=== PATIENT | female | born 1980 | race Caucasian/White ===

== ENCOUNTER → 2016-10-05 | Outpatient (CLI) | payer BC, OTHER ==
[~2016-10-05] MED LIST: CELEXA PO; HYDROCHLOROTH12.5 M1 PO; LEVOTHYROXINE75 MCG PO; PHENTERMINE H37.5 M1 PO; VITAMIN D350000 UNIT PO; ZESTRIL10 M2 PO
--- NOTE | ~2016-10-05 | EKG ---
PATIENT: LYNNE DAILEY UNIT #: [id number] Ventricular Rate: 63 BPM Atrial Rate: 63 BPM P-R Interval: 140 ms QRS Duration: 84 ms Q-T Interval: 396 ms QTC Calculation(Bezet): 405 ms P Powell: 4 degrees Calculated R Powell: -11 degrees Calculated T Powell: 0 degrees Diagnosis Line: Normal sinus rhythm Diagnosis Line: Minimal voltage criteria for LVH, may be normal Diagnosis Line: variant Diagnosis Line: Poor R wave progression questionable lead position Diagnosis Line: or body habitus Diagnosis Line: Borderline ECG Diagnosis Line: No previous ECGs available Diagnosis Line: Confirmed by NAVARRO YEUNG MD ([id number]) on Diagnosis Line: 10/06/2016 6:44:15 AM INTERPRETING MD: SAMEERA
--- NOTE | ~2016-10-05 | CR97 ---
[facility] A Service of [facility] & [facility] RADIOLOGY TEXT RESULTS PATIENT: LYNNE DAILEY LOCATION: [facility] : 84 UNIT #: [id number] AGE: [address]: Ernesto Pinzon SEX: F ORDER DR: [id number] [facility] [address] [facility]. [place], [place] [address] [id number] O MR#: [id number] Acc #: [id number] NAME: LYNNE DAILEY : 1980 SEX: F STUDY DATE/TIME: 10/05/2016 9:14 UNIT: [facility] ROOM: STUDY DESCRIPTION: CR Esophagram Attending Physician: Ernesto Pinzon M.D. Referring Physician: Ernesto Pinzon M.D. Ordering Physician: Ernesto Pinzon M.D. Primary Care Physician: Anh Harvey A.P.R.N. MEDICAL IMAGING REPORT This report is preliminary unless electronic signature is present EXAM Barium esophagram. INDICATION Preop for Lap-Band surgery. Morbid obesity. TECHNIQUE The fluoro time was 0.4 minutes. 9 images were taken. FINDINGS There are multiple tertiary contractions. No evidence for a hiatal hernia. Calcified hilar lymph nodes are noted. IMPRESSION Multiple tertiary contractions, otherwise unremarkable. Dictated by... Marcos Philippe M.D. THIS IS AN ELECTRONICALLY VERIFIED REPORT Marcos Philippe M.D. at 10/05/2016 4:42 PM REYES/gabino TD: 10/05/2016 10:42 JOB #: [id number] MEDICAL IMAGING REPORT Page 1 of 1 COPY
--- NOTE | ~2016-10-05 | CR63 ---
[facility] A Service of [facility] & [facility] RADIOLOGY TEXT RESULTS PATIENT: LYNNE DAILEY LOCATION: [facility] : 84 UNIT #: [id number] AGE: [address]: Ernesto Pinzon SEX: F ORDER DR: [id number] [facility] [address] [place], [place] [address] [id number] O MR#: [id number] Acc #: [id number] NAME: LYNNE DAILEY : 1980 SEX: F STUDY DATE/TIME: 10/05/2016 7:57 UNIT: [facility] ROOM: STUDY DESCRIPTION: CR Chest 2 View Attending Physician: Ernesto Pinzon M.D. Referring Physician: Ernesto Pinzon M.D. Ordering Physician: Ernesto Pinzon M.D. Primary Care Physician: Anh Harvey A.P.R.N. MEDICAL IMAGING REPORT This report is preliminary unless electronic signature is present EXAM Chest 2 views dated 10/05/2016 COMPARISON Chest views dated 08/26/2015. HISTORY Possible paraesophageal hernia repair. Preop evaluation. FINDINGS 2 views of the chest were obtained. Stable calcifications are noted in bilateral matty suggestive of calcified lymph nodes. No acute cardiopulmonary disease. Dictated by... Johnny Masters M.D. THIS IS AN ELECTRONICALLY VERIFIED REPORT Johnny Masters M.D. at 10/05/2016 5:18 PM CPR/aa TD: 10/05/2016 09:21 JOB #: [id number] MEDICAL IMAGING REPORT Page 1 of 1 COPY
[2016-10-05 09:59] LABS: HEMATOCRIT 40.8 % (35.0-45.0); HEMOGLOBIN 13.3 gm/dL (12.0-16.0); MEAN CELL VOLUME 81.6 FL (83-96); MEAN CORPUSCULAR HEMOGLOBIN 26.7 PG (28-34); MEAN CORPUSCULAR HGB CONC 32.7 g/dL (30-36); MEAN PLATELET VOLUME 9.4 FL (6.5-11.5); RED CELL DISTRIBUTION WIDTH 14.4 % (11.0-15.5); WHITE BLOOD COUNT 7.3 X10e3 (4.0-10.5)
[2016-10-05 10:49] LABS: ALBUMIN SERUM 3.7 g/dL (3.5-5.0); BILIRUBIN,TOTAL 1.1 mg/dL (0.2-2.0); CREATININE SERUM 0.8 mg/dL (0.6-1.4); GLOM FILT RATE Estimated 96.3 mL/min (>60); POTASSIUM 3.7 mmol/L (3.5-5.1); PROTEIN TOTAL SERUM 6.8 g/dL (6.0-8.3)
== END | disposition home or self-care (01) ==
LOC: CAMB 07:34
PROVIDERS: Surgery
DX: Z01.818 Encounter for other preprocedural examination (principal); E66.01 Morbid (severe) obesity due to excess calories
CPT/HCPCS: 36415; 71020; 74220; 80053; 80061; 84443; 85027; 93005

== ENCOUNTER → 2016-10-17 | Day surgery (SDC) | payer BC, OTHER ==
--- NOTE | ~2016-10-17 | OR ---
Unit #: [id number] #: [id number] Patient: LYNNE DAILEY [id number] [address] [place], [place] [address] [id number] O MR#: [id number] NAME: LYNNE DAILEY ROOM: Date of Procedure: 10/17/2016 Admission Date: 10/17/2016 Surgeon: Ernesto Pinzon M.D. : 1980 Attending Physician: Ernesto Pinzon M.D. Primary Care Physician: Generic Doctor Not In System OPERATIVE REPORT PREOPERATIVE DIAGNOSIS Morbid obesity. POSTOPERATIVE DIAGNOSES Morbid obesity with paraesophageal hernia. PROCEDURE PERFORMED Placement of laparoscopic adjustable band and repair of paraesophageal hernia. ANESTHESIA General endotracheal. COMPLICATIONS None. ESTIMATED BLOOD LOSS Minimal. CUTTER OPERATOR HELPER Efren Valentin M.D. DESCRIPTION OF PROCEDURE After the patient was prepped and draped in usual fashion, an area was palpated approximately 10 cm below the xiphoid, just to the left of the midline. A transverse incision was made nearly 3 cm in length after anesthetizing with 0.5% Marcaine. Visiport was used to enter the peritoneal cavity. The peritoneal cavity was insufflated under direct vision and an epigastric 5-mm port was placed, a right upper quadrant 5-mm port was placed, 2 left upper quadrant ports, the medial of which was 11 mm port and the lateral one was 5 mm port were all placed under direct vision. A liver retractor was placed through the epigastric 5-mm port site. The left lobe of the liver was elevated in the usual fashion. The lesser sac was opened with cautery. There was 3 to 4 mm artery encountered, which was clipped twice proximally, twice distally, and divided. The peritoneum was incised over the top of the GE junction and over to expose the left steven of the diaphragm. In doing so, a paraesophageal hernia was encountered. With this, a aipixa-gq-ptkli stitch of 0 Ethibond was used to close the hernia and to effect a repair. The right steven of the diaphragm was examined. The fat pad was identified inferiorly. Using grasping forceps, the perineum at this junction was broken into bluntly and a grasper was passed from the right upper quadrant Unit #: [id number] #: [id number] Patient: LYNNE DAILEY trocar site in the retrogastric position up to the angle of His in the usual fashion. The lower midline trocar was removed. The Lap-Band was placed through this into the peritoneal cavity. The tubing was grasped and placed within the jaws of the retrogastric forceps and the Lap-Band was pulled through in the usual fashion. The tubing was placed through the buckle, but not cinched down and locked. With this, an area of the cardia was grasped and sutured up to the left steven of the diaphragm with 0 Ethibond. The area of the stomach above the band was elevated and pulled up. There was a good visualization of gastric wall here. Appropriate area on the lower cardia, just lateral to the band was examined. A stitch of 0 Ethibond was taken from here over the top of the band to the gastric wall of the pouch. With this, the Lap-Band was buckled and cinched down and locked. An inferior plicating stitch was placed just below the band near the lesser curvature and three bites were taken sequentially superiorly and just to the left side of the band and sutured down in usual fashion. It should be noted that we did use a regular band and regular port. There was no bleeding. The tubing was pulled out through the lower midline trocar site. Abdomen was desufflated. The liver retractor was removed and the abdomen desufflated. There was no bleeding from the operative field. The tubing was cut to the appropriate length, the hub attached to this and pocket was made just above the fascia using blunt dissection inferiorly from the lower midline trocar site. The hub was placed over the top of the fascia in this position. The Prolene mesh was sewn onto the back of the hub prior to placing this. All wounds were closed with 4-0 Vicryl subcuticular stitches Steri-Strips and dressings applied. The patient was taken to the recovery room in good condition. Dictated by... Tereza Aldrich/bob TD: 10/18/2016 23:54 JOB #: [id number] OPERATIVE REPORT Page 1 of 1 X Ernesto Pinzon OPERATIVE NOTE
--- NOTE | ~2016-10-17 | CR7 ---
[facility] A Service of [facility] & [facility] RADIOLOGY TEXT RESULTS PATIENT: LYNNE DAILEY LOCATION: [facility] : 84 UNIT #: [id number] AGE: [address]: Ernesto Pinzon SEX: F ORDER DR: [id number] [facility] [address] [facility] [place], [place] [address] [id number] O MR#: [id number] Acc #: [id number] NAME: LYNNE DAILEY : 1980 SEX: F STUDY DATE/TIME: 10/17/2016 9:48 UNIT: [facility] ROOM: STUDY DESCRIPTION: CR Abdomen Single AP View Attending Physician: Ernesto Pinzon M.D. Ordering Physician: Ernesto Pinzon M.D. Primary Care Physician: Keena Not Listed MEDICAL IMAGING REPORT This report is preliminary unless electronic signature is present EXAM Supine radiograph of the abdomen, 10/17/2016. HISTORY Postop Lap-Band, PACU back. TECHNIQUE Supine radiograph of the abdomen presented. FINDINGS Status post Lap-Band device placement. Band component at anticipated location of gastroesophageal junction given appearance on esophagram dated 10/05/2016. Band component at 59 degrees from the vertical. Catheter component radiographically intact. Port component implanted over left lower abdomen. Visualized lung bases clear. Visualized bowel gas pattern normal. No indication of free air. Bony structures unremarkable. Dictated by... Garfield Talbert M.D. THIS IS AN ELECTRONICALLY VERIFIED REPORT Garfield Talbert M.D. at 10/18/2016 10:54 PM MANINDER/gabino TD: 10/17/2016 12:48 JOB #: [id number] MEDICAL IMAGING REPORT Page 1 of 1 COPY
== END | disposition home or self-care (01) ==
LOC: CSUR 06:02
DX: E66.01 Morbid (severe) obesity due to excess calories (principal); K44.9 Diaphragmatic hernia without obstruction or gangrene; I10 Essential (primary) hypertension; E03.9 Hypothyroidism, unspecified; F41.9 Anxiety disorder, unspecified; F32.9 Major depressive disorder, single episode, unspecified; Z68.43 Body mass index [BMI] 50.0-59.9, adult; Z88.8 Allergy status to other drugs, medicaments and biological substances; Z91.09 Other allergy status, other than to drugs and biological substances; Z79.899 Other long term (current) drug therapy; Z90.89 Acquired absence of other organs; Z98.51 Tubal ligation status
CPT/HCPCS: 74000; 84703; C1781; J0330; J0690; J1650; J1885; J2250; J2405; J2710; J3010